=== PATIENT | female | born 1990 | race African-American/Black ===

== ENCOUNTER 2022-07-21 14:33 | Emergency (ER) | payer MEDICAID ==
[~2022-07-21] VITALS: Ht 162.6 cm; Wt 50.0 kg
[2022-07-21] MEDS ORDERED: ONDANSETRON HCL 4MG/2ML INJ IV NR (15:19)
[2022-07-21] MEDS ORDERED: KETOROLAC 30MG/ML VIAL IV NR (15:19)
[2022-07-21] MEDS ORDERED: KETOROLAC 30MG/ML VIAL IV STA (15:19)
[2022-07-21] MEDS ORDERED: ONDANSETRON HCL 4MG/2ML INJ IV STA (15:19)
[2022-07-21] MEDS ORDERED: FAMOTIDINE 20MG/2ML VIAL IV NR (15:30)
[2022-07-21] MEDS ORDERED: SODIUM CHLORIDE 0.9% 1,000 ML IV ONE (15:30)
[2022-07-21] MEDS ORDERED: FAMOTIDINE 20MG/2ML VIAL IV ONE (15:30)
[2022-07-21 16:38] LABS: HEMATOCRIT. 35.5 % (36.0-48.0); HEMOGLOBIN. 11.5 g/dL (12.0-16.0); MEAN CORPUSCULAR HEMOGLOBIN 29.2 pg (28.0-32.0); MEAN CORPUSCULAR VOLUME 89.7 fL (81.0-99.0); MEAN PLATELET VOLUME 7.8 fl (7.4-10.4); PLATELET 211 x1000/uL (130-400); RED BLOOD CELL COUNT 3.95 mill/uL (4.2-5.4); RED CELL DISTRIBUTION WIDTH 14.1 % (11.6-14.6)
[2022-07-21 16:47] LABS: CHLORIDE 110 mEq/L (98-107)
[2022-07-21 16:51] LABS: HCG SCREEN NEGATIVE
[2022-07-21 17:21] LABS: PLATELET ESTIMATE NORMAL
[2022-07-21 17:33] VITALS: BP 117/75
[2022-07-21] MEDS ORDERED: IBUP-2028 MT (18:06)
[2022-07-21] MEDS ORDERED: ONDA4TAB11 PO (18:06)
== END 2022-07-21 18:46 | disposition home or self-care (01) ==
LOC: ER 14:33
DX: R10.30 Lower abdominal pain, unspecified (principal); R07.89 Other chest pain; R11.2 Nausea with vomiting, unspecified; Z88.5 Allergy status to narcotic agent
CPT/HCPCS: 36415; 80053; 83690; 84703; 85025; 93005; 96374; 96375; 99284; J1885; J2405; J3490; J7030

== ENCOUNTER 2023-11-18 18:12 | Emergency (ER) | payer SELFPAY ==
[~2023-11-18] VITALS: Ht 165.1 cm; Wt 66.0 kg
[~2023-11-18 18:12] MED LIST: IBUP-2028 MT; ONDA4TAB11 PO
[2023-11-18 18:14] VITALS: BP 120/54; PULSE 73; RESP 18; TEMP 97.7; O2SAT 98
== END 2023-11-19 07:35 | disposition left against medical advice (07) ==
LOC: ER 18:12
DX: R11.2 Nausea with vomiting, unspecified (principal)
CPT/HCPCS: 99283